=== PATIENT | male | born 1995 | race African-American/Black ===

== ENCOUNTER 2024-08-06 15:59 | Emergency (ER) | payer SELFPAY ==
[2024-08-06 16:01] VITALS: BP 149/95
[2024-08-06 18:16] LABS: % Basophils 0.8 % (0-2); % Eosinophils 1.3 % (0-6); % Immature Granulocytes 0.1 % (0-0.5); % Lymphocytes 27.9 % (20.5-51.1); % Monocytes 7.4 % (1.7-9.3); % Neutrophils 62.5 % (42.2-75.2); Absolute Basophils 0.1 10^3/uL (0-0.2); Absolute Eosinophils 0.1 10^3/uL (0-0.7); Absolute Lymphocytes 2.2 10^3/uL (1.2-3.4); Absolute Monocytes 0.6 10^3/uL (0.1-0.6); Absolute Neutrophils 4.9 10^3/uL (1.4-6.5); Hemoglobin 15.1 g/dL (13.0-18.0); Mean Corp Hgb Conc. 32.1 g/dL (33.0-37.0); Mean Corpuscular Hgb 25.9 pg (27.0-31.0); Mean Corpuscular Volume 80.6 fL (80.0-94.0); Mean Platelet Volume 9.8 fL (7.4-10.4); Nucleated Red Blood Cells % 0 % (-); Platelet Count 211 10^3/uL (130-400); Red Blood Cell Count 5.83 10^6/uL (4.70-6.10); Red Cell Dist. Width 12.4 % (11.5-14.5); White Blood Cell Count 7.8 10^3/uL (4.8-10.8)
--- NOTE | 2024-08-06 18:16 | ED.GENMED ---
History of Present Illness
General
Chief Complaint: Ear Problem
Source: patient
Exam Limitations: none
Time Seen by Provider: 08/06/24 17:33
Nursing documentation reviewed up to this point in time: agreed with
History of Present Illness
History of Present Illness:
Patient is a 29-year-old male presents to the ER for evaluation. Patient reports he has been fatigued for months and has no energy and for the past week he has had a throbbing/pulsating sensation in his left ear that he had some ear pain. He also
ports he has had some pressure in the right side of his head. Denies any fevers. He does report he has a history of vitamin D deficiency and takes [id number] vitamin D. He denies any recent illness fever chills respiratory symptoms sore
throat. He denies any recent trauma injury chiropractor manipulation. He denies any dizziness vertigo. He denies any weight loss. He works as an electrician chief.
Past History
Past History
ED Past Medical History: Negative Asthma, HTN, Hypercholesterolemia or NIDDM
ED Past Surgical History: None
Social History
Tobacco: Non-smoker
Alcohol: None
Personal:
Living: with family
Review of Systems
Review of Systems
Allergies reviewed?: Yes
All Other Systems: ROS reviewed and negative except as documented in HPI and ROS
Constitutional: Reports fatigue; Denies fever or chills
EENT: Reports other (Left ear discomfort, pulsating/throbbing sensation)
Respiratory: Reports no symptoms
Cardiac: Reports no symptoms
ABD/GI: Reports no symptoms
: Reports no symptoms
Musculoskeletal: Reports no symptoms
Skin: Reports no symptoms
Neurological: Reports no symptoms
Endocrine: Reports no symptoms
Psychiatric: Reports no symptoms
Phy Exam
General Physical Exam
General Presentation: no apparent distress
General age: appears stated age
General Skin: warm and dry
General Habitus: normal
General Mental: alert
General Hydration: appears well hydrated
ENT Exam
ENT Exam: EOMI and other (b/l TMS intact )
Cardiovascular Exam
Cardiovascular Exam: regular rate/rhythm, no murmur and normal peripheral pulses
Pulmonary Exam
Pulmonary Exam: lungs clear and no respiratory distress
Neurological Exam
Neurological Exam: alert and oriented x3
Musculoskeletal Exam
Musculoskeletal Exam: full ROM
Skin Exam
Skin Exam: normal color and warm/dry
Psychiatric Exam
Psychiatric Exam: normal mood/affect
Course
Orders/Labs/Results
Orders:
Orders
08/06/24 18:04
CT Head W/o Iv Contrast Urgent
Comment:
Reason For Exam: dizzy head/ear pain
08/06/24 18:10
Complete Blood Count/With Diff Urgent
Comprehensive Metabolic Panel Urgent
TSH Reflex To Free T4 Urgent
08/06/24 19:34
Vital Signs- Treatment ONCE
Frequency: Once
Abnormal Lab Results
08/06/24
18:10
MCH 25.9 L pg
(27.0-31.0)
MCHC 32.1 L g/dL
(33.0-37.0)
08/06/24 18:10
08/06/24 18:10
Vital Signs
Initial and Last Documented VS:
Initial Vital Signs
Temp Pulse Resp BP Pulse Ox
98.8 F 82 16 149/95 98
08/06/24 16:01 08/06/24 16:01 08/06/24 16:01 08/06/24 16:01 08/06/24 16:01
Last Documented Vital Signs
Temp Pulse Resp BP Pulse Ox
98.8 F 82 16 149/95 98
08/06/24 16:01 08/06/24 16:01 08/06/24 16:01 08/06/24 16:08/06/24 16:01
MDM/Problems Addressed
MDM/Problems Addressed:
Patient is a 29-year-old male who presented to the ER complaining of fatigue and throbbing/pulsing sensation in left ear. He denies any trauma. He had some fullness to the right side of his head but denies any headache. He denies any neck pain.
Denies any vertigo. He denies any upper extremity numbness [place] weakness. He presents no acute distress. He complains of fatigue for months.
He denies any recent fever chills URI symptoms. He denies any chest pain shortness of breath. He is nontoxic on exam.
Patient's TMs are clear bilaterally he has no acute distress no meningismus lungs are clear heart regular rate and rhythm. Labs unremarkable including normal TSH .Case discussed with ED physician CAT scan done and unremarkable.
On reexam at 1930 patient reports he feels better he has no symptoms of ear pulsating throbbing, the right side of his head no longer hurts. He has no complaints at this time. Will DC with close outpatient follow family doctor.
*Critical Care Note
Total Time (30-74mins, 75-104mins- exclusive of procedures): Not Applicable
ED Attending Note
-
Portions of this chart may have been created with voice recognition software.� Occasional wrong word or��sound alike� substitutions may have occurred due to the inherent limitations of voice recognition software.
Discharge Plan
Departure
Patient Disposition: Home (Routine Discharge)
Date of Disposition: 08/06/24
Time of Disposition: 19:34
Patient with high blood pressure during this ER visit?: Yes
Condition: Fair
Covid-19: Not Applicable
Discharge Problem:
Fatigue
Instructions: Fatigue (DC)
Prescriptions:
No Action
naproxen [Naprosyn] 500 MG tablet
500 mg PO TID Qty: 15 0RF
Rx Instructions:
PLEASE TAKE WITH FOOD
Referrals:
UNKNOWN - PT DOES,NOT KNOW [Family Provider] -
Activity Restrictions/Additional Instructions:
Follow-up closely with your family doctor in the next several days for reevaluation of your symptoms .
return if any worsening of symptoms
Interventions
Interventions:
*Risk Screen - Suicide Last Done: 08/06/24 16:01
*General Assessment Last Done: 08/06/24 16:01
*Neglect/Abuse Screening Last Done: 08/06/24 16:01
*ED COVID-19 Vaccine History Last Done: 08/06/24 17:31
Discharge Date and Time
Print Language: DANISH
[2024-08-06 18:31] LABS: ALT (SGPT) 11 U/L (0-50); AST (SGOT) 22 U/L (17-59); Albumin 4.3 g/dl (3.5-5.0); Alkaline Phosphatase 63 U/L (38-126); Blood Urea Nitrogen 17 mg/dl (9-20); Calcium 9.9 mg/dl (8.4-10.2); Carbon Dioxide 29 mmol/L (22-30); Chloride 103 mmol/L (98-107); Glucose 96 mg/dl (70-99); Potassium 4.1 mmol/L (3.5-5.1); Sodium 139 mmol/L (135-145); Total Bilirubin 0.4 mg/dl (0.2-1.3); Total Protein 6.9 g/dl (6.3-8.2); eGFR > 60.00
[2024-08-06 19:01] LABS: TSH Reflex To Free T4 1.02 uIU/ml (0.47-4.68)
[2024-08-06 20:41] VITALS: BP 141/96
== END 2024-08-06 20:50 | disposition home or self-care (01) ==
LOC: EMR 15:59
PROVIDERS: Nurse Practitioner; EMERGENCY PHYSICIAN Emergency Medicine
DX: R53.83 Other fatigue (principal); H92.02 Otalgia, left ear; R03.0 Elevated blood-pressure reading, without diagnosis of hypertension; R42 Dizziness and giddiness; E55.9 Vitamin D deficiency, unspecified; K57.92 Diverticulitis of intestine, part unspecified, without perforation or abscess without bleeding
CPT/HCPCS: 99284; 70450; 80053; 84443; 85025

== ENCOUNTER 2024-11-16 15:04 | Emergency (ER) | payer OTHER, SELFPAY ==
[2024-11-16 15:15] VITALS: BP 144/93
--- NOTE | 2024-11-16 16:00 | ED.GENMED ---
History of Present Illness
<Sandra Fagan PA-C - Last Filed: 11/16/24 20:20>
General
Chief Complaint: Headache
Source: patient
Exam Limitations: none
Time Seen by Provider: 11/16/24 15:57
Nursing documentation reviewed up to this point in time: agreed with
History of Present Illness
History of Present Illness:
29-year-old male with past medical history of hypertension presents emergency department today with concerns of a sensation of buzzing in his ears with intermittent headaches which started last year. Patient reports reports that he is a sensation
of buzzing and ringing in his years throughout the whole day and states that it will get worse at different periods of time throughout the day. Patient states that it bothers him so much that sometimes he will have to take a break from work and
stepped outside. Patient reports that sometimes this will trigger headaches and some intermittent dizziness as well. Patient saw care provider for the symptoms symptoms 2 weeks ago and his primary care provider thought the symptoms were related to
high blood pressure and so he was started on blood pressure medication. Patient is unsure what these medication is but states that he takes every morning. He does not feel like it is helping his symptoms. Patient currently does not have a
headache or dizziness. He denies any trauma to the head or neck, any weakness in his upper extremities, any difficulty walking, any loss of consciousness, or any
Past History
<Sandra Fagan PA-C - Last Filed: 11/16/24 20:20>
Past History
ED Past Medical History: Negative Asthma, HTN, Hypercholesterolemia or NIDDM
ED Past Surgical History: None
Social History
Tobacco: Non-smoker
Alcohol: None
Personal:
Living: with family
Review of Systems
<Sandra Fagan PA-C - Last Filed: 11/16/24 20:20>
Review of Systems
All Other Systems: ROS reviewed and negative except as documented in HPI and ROS
Phy Exam
<Sandra Fagan PA-C - Last Filed: 11/16/24 20:20>
Physical Exam
Physical Exam:
General: Patient is well appearing and in no acute distress; non-toxic
Skin: Warm and dry, no rashes or lesions
Head: Normocephalic, atraumatic
Eyes: Sclera non-icteric. EOMs intact.
Ears: TMs clear bilaterally with no erythema, no bulging
Cardiac: Regular rate and rhythm, no murmurs
Peripheral Vascular: No lower extremity swelling or edema
Pulm: Normal respiratory effort, no wheezes, rales, or rhonchi
Neuro: CN II-XII intact, no focal neurologic deficits.
Psychiatric: Appropriate mood and affect.
Course
<Sandra Fagan PA-C - Last Filed: 11/16/24 20:20>
Vital Signs
Initial and Last Documented VS:
Initial Vital Signs
Temp Pulse Resp BP Pulse Ox
98.3 F 86 16 144/93 100
11/16/24 15:15 11/16/24 15:15 11/16/24 15:15 11/16/24 15:15 11/16/24 15:15
Last Documented Vital Signs
Temp Pulse Resp BP Pulse Ox
98.3 F 86 16 144/93 100
11/16/24 15:15 11/16/24 15:15 11/16/24 15:15 11/16/24 15:15 11/16/24 15:15
<Ayala Long MD - Last Filed: 11/16/24 16:39>
Vital Signs
Initial and Last Documented VS:
Initial Vital Signs
Temp Pulse Resp BP Pulse Ox
98.3 F 86 16 144/93 100
11/16/24 15:15 11/16/24 15:15 11/16/24 15:15 11/16/24 15:15 11/16/24 15:15
Last Documented Vital Signs
Temp Pulse Resp BP Pulse Ox
98.3 F 86 16 144/93 100
11/16/24 15:15 11/16/24 15:15 11/16/24 15:15 11/16/24 15:15 11/16/24 15:15
<Sandra Fagan PA-C - Last Filed: 11/16/24 20:20>
MDM/Problems Addressed
Differential Diagnosis Includes:
eastachian tube dysfunction, migraine headache, TMJ disorder, meniere's disease, BPPV, venous hum
MDM/Problems Addressed:
29-year-old male presents emergency department today with concerns of tinnitus for multiple months. He has also had intermittent headaches and dizziness as well. Currently he has no headaches but does feel sensation of buzzing in his ears. He was
seen for similar symptoms in August 18, 2024 and negative CAT scan of the head. Today, he has no focal neurologic deficits and his TMs are clear bilaterally. Differential wide but currently no concern for acute neurologic or vascular event, feel
that he would best be served having a full evaluation by ENT specialist as outpatient. Patient stable for discharge.
Chronic conditions affecting care:
hypertension
<Sandra Fagan PA-C - Last Filed: 11/16/24 20:20>
*Pulse Oximetry
Patient hypoxic: no
*Critical Care Note
Total Time (30-74mins, 75-104mins- exclusive of procedures): Not Applicable
Data Reviewed
Review of Other/Old Records Reveals: Records (Reviewed previous ER physician documentation from 08/06/2024 patient seen for similar symptoms had negative CT scan of the head)
Source: patient and records
ED Attending Note
<Sandra Fagan PA-C - Last Filed: 11/16/24 20:20>
-
Portions of this chart may have been created with voice recognition software.� Occasional wrong word or��sound alike� substitutions may have occurred due to the inherent limitations of voice recognition software.
<Ayala Long MD - Last Filed: 11/16/24 16:39>
ED Attending Note
Patient seen and examined by attending physician: Yes
I performed the substantive portion of visit, reviewed & personally made and approve the management plan that is documented in note by myself or ALEM.: Yes
ED Attending Note:
29-year-old male with complaints of a 'high pitched buzzing' inside his head/ear area on and off for about a year. He saw his doctor about this 2 weeks ago and it was attributed to hypertension he was started on a medication which she is compliant
with. However, since 2 weeks ago, the symptoms continue, waxing and waning intensity without specific provoking or relieving factors. He denies hearing voices, numbness, tingling, focal weakness, nausea, vomiting, fever, chills, neck pain, chest
pain, shortness of breath, change in vision, change in speech, change in balance. He has had intermittent low-level headaches, none right now. On exam, patient is neurologically intact, awake alert, TMs clear bilaterally. Mild hypertension noted.
Patient advised to see ENT promptly for further workup for reports of tenderness, as well as his primary care doctor for continued care and attention to his continued moderate hypertension. No signs or symptoms to suggest acute vascular event,
acute neurological event, etc.
Discharge Plan
Departure
Patient Disposition: Home (Routine Discharge)
Date of Disposition: 11/16/24
Time of Disposition: 16:39
Patient with high blood pressure during this ER visit?: Yes
Condition: Good
Discharge Problem:
Tinnitus
Instructions: Tinnitus (ringing in the ears), BLOOD PRESSURE
Prescriptions:
No Action
naproxen [Naprosyn] 500 MG tablet
500 mg PO TID Qty: 15 0RF
Rx Instructions:
PLEASE TAKE WITH FOOD
Referrals:
Skip Marina MD [Active] - Call in 1-3 days for appt
Activity Restrictions/Additional Instructions:
Your CT scan of the head in July 2024 was normal.
Please continue to take your blood pressure medications.
PLEASE RETURN EMERGENCY DEPARTMENT SHOULD YOU DEVELOP LIGHTHEADEDNESS, DIZZINESS, INTRACTABLE HEADACHE, INTRACTABLE NAUSEA OR VOMITING, CHEST PAIN OR SHORTNESS OF BREATH, WEAKNESS ONE-SIDED BODY VERSUS OTHER, DIFFICULTY AMBULATE, TROUBLE SWALLOWING,
LOSS OF VISION, BLURRY VISION, OR ANY OTHER SIGNS OR SYMPTOMS WORRISOME TO YOU.
Interventions
Interventions:
*Risk Screen - Suicide Last Done: 11/16/24 15:15
*Neglect/Abuse Screening Last Done: 11/16/24 15:17
*Nursing Disposition Last Done: 11/16/24 17:08
Discharge Date and Time
Discharge Date/Time: 11/16/24 17:08
Print Language: GERMAN
== END 2024-11-16 17:08 | disposition home or self-care (01) ==
LOC: EMR 15:04
PROVIDERS: EMERGENCY PHYSICIAN Emergency Medicine
DX: H93.13 Tinnitus, bilateral (principal); I10 Essential (primary) hypertension
CPT/HCPCS: 99282

== ENCOUNTER 2025-07-29 10:06 | Emergency (ER) | payer OTHER, SELFPAY ==
[2025-07-29 10:07] VITALS: BP 149/96
--- NOTE | 2025-07-29 11:36 | ED.GENMED ---
History of Present Illness
General
Chief Complaint: Abdominal Pain
Source: patient
Exam Limitations: none
Time Seen by Provider: 07/29/25 11:30
History of Present Illness
History of Present Illness:
See MDM
Past History
Past History
ED Past Medical History: Negative Asthma, HTN, Hypercholesterolemia or NIDDM
ED Past Surgical History: None
Social History
Tobacco: Non-smoker
Alcohol: None
Personal:
Living: with family
Phy Exam
Physical Exam
Physical Exam:
See MDM
Course
Orders/Labs/Results
Orders:
Orders
07/29/25 10:12
Crisis Consult Urgent
Reason for Consult: depression
07/29/25 11:35
CT Abd/pelvis W Iv Cont Urgent
Comment:
Reason For Exam: lower abd pain, intermittent rectal bleed
07/29/25 12:09
Complete Blood Count/With Diff Urgent
Comprehensive Metabolic Panel Urgent
07/29/25 14:21
Amoxicillin 875 mg/Clav 125 mg [Augmentin 875 mg/125 mg] 1 tablet PO NOW STA
Abnormal Lab Results
07/29/25
12:09
RBC 6.17 H 10^6/uL
(4.70-6.10)
MCV 72.6 L fL
(80.0-94.0)
MCH 23.0 L pg
(27.0-31.0)
MCHC 31.7 L g/dL
(33.0-37.0)
Absolute Monos (auto) 0.8 H 10^3/uL
(0.1-0.6)
Monocytes % 9.5 H %
(1.7-9.3)
07/29/25 12:09
07/29/25 12:09
Vital Signs
Initial and Last Documented VS:
Initial Vital Signs
Temp Pulse Resp BP Pulse Ox
98.3 F 99 18 149/96 98
07/29/25 10:07 07/29/25 10:07 07/29/25 10:07 07/29/25 10:07 07/29/25 10:07
Last Documented Vital Signs
Temp Pulse Resp BP Pulse Ox
98.3 F 86 11 156/97 97
07/29/25 10:07 07/29/25 13:00 07/29/25 13:00 07/29/25 13:00 07/29/25 13:00
MDM/Problems Addressed
Differential Diagnosis Includes:
Note:
CHIEF COMPLAINT(S)
Abdominal pain.
HISTORY OF PRESENT ILLNESS
The patient is a 30-year-old male with a history of abdominal issues described as 'the same pain' that have been recurring for the past several years. The current episode has persisted for the past two days and is localized in the central abdomen.
He states this is similar distribution to a pain episode where he was told he has 'infection in the lower intestines'. He denies any fevers or recent travel or sick contacts. Patient also complaining of 'd�j� vu syndrome'. Patient states he has
been seen for this in the past and placed on mental health medications. He denies any suicidal or homicidal thoughts. Patient interested in crisis consult for outpatient referral
PAST MEDICAL AND SURGICAL HISTORY
The patient recalls a significant episode involving the lower intestines, involving potential infection as the underlying issue. No surgical history was provided.
SOCIAL DETERMINANTS AFFECTING HEALTH
The patient reports that his family is not responding to his calls, indicating social isolation and lack of familial support.
PHYSICAL EXAM
General: Alert, no acute distress.
Skin: Warm, dry.
Head: Normocephalic, atraumatic
Neck: Appears supple, trachea midline.
Eyes, Ears, Nose, Mouth, and Throat: Moist mucous membranes
Cardiovascular: No signs of cyanosis
Respiratory: Respirations are non-labored.
Abdomen: Non-distended. Very mild periumbilical tenderness without rebound
Musculoskeletal: No deformities
Neurological: No focal neurological deficit observed.
Psychiatric: Cooperative, appropriate mood and affect.
PLAN
Blood work and a computed tomography (CT) scan to investigate for potential infections or other abnormalities affecting the intestines.
DIFFERENTIAL DIAGNOSIS
- The Differential Diagnosis includes, in no particular order and is not limited to:
- Diverticulitis
- Colitis
- Hemorrhoids
- Abdominal hernia
- Irritable bowel syndrome
- Gastroenteritis
- Inflammatory bowel disease (IBD)
- Peptic ulcer disease
- Celiac disease
- Gastrointestinal infection
SUMMARY OF ENCOUNTER
The patient was seen in the emergency department for evaluation of chronic abdominal pain, presenting with a 12-year history of episodic symptoms. The immediate plan included ordering blood work and a CT scan to evaluate for infection or other
abdominal pathology.
DISPOSITION
Not explicitly mentioned.
ASSESSMENT
Chronic abdominal pain with a history suggesting potential recurrent lower intestinal infection or other gastrointestinal pathology, with need for further diagnostic evaluation.
EMERGENCY TREATMENTS ADMINISTERED
None explicitly mentioned.
INDEPENDENT REVIEW OF LABS AND INTERPRETATION OF TESTS
Not explicitly elaborated upon, but blood work has been planned.
PATIENT EDUCATION AND COUNSELING
If the tests return normal, consideration for referral to a suppository molding machine operator was discussed.
MEDICATION RECONCILIATION
Patient offered pain management.
MEDICAL DECISION MAKING
- Complexity of Data Reviewed: Chronic conditions affecting care [Past issues with lower intestinal infections]; DDx list.
- Data:
- Category 1: Tests and documents (Blood work and CT scan were ordered)
- Category 2: Not explicitly mentioned.
- Category 3: Discussion of management with other physicians was alluded to but not specified.
- Risk: Consideration of referral to a suppository molding machine operator if current evaluations are unrevealing. Potential for further escalation in care through GI referral.
Care significantly affected by Social Determinants of Health: Family not being supportive, impacting the patients social circumstances.
SUMMARY OF ENCOUNTER
The patient was seen in the emergency department for abdominal pain. A CT scan was performed, revealing acute diverticulitis without perforation or abscess. The patient appeared well and non-toxic. Augmentin (amoxicillin/clavulanate) was prescribed
for treatment. The patient was comfortable with the plan to manage the condition as an outpatient. Resources for mental health support were provided by crisis services, and follow-up for incidental findings on the CT scan was advised with the
primary care provider.
PLAN
Start treatment with Augmentin (amoxicillin/clavulanate) for acute diverticulitis. The patient should follow up with their primary care provider to further evaluate incidental findings from the CT scan.
INDEPENDENT REVIEW OF LABS AND INTERPRETATION OF TESTS
- My independent CT scan interpretation indicates acute diverticulitis without evidence of perforation or abscess.
PATIENT EDUCATION AND COUNSELING
The patient was provided with resources for mental health support and educated about the treatment plan for diverticulitis. The importance of follow-up with the primary care provider for the incidental findings on the CT scan was discussed.
MEDICATION RECONCILIATION
Augmentin (amoxicillin/clavulanate) was prescribed for the treatment of acute diverticulitis.
MEDICAL DECISION MAKING
- Complexity of Data Reviewed: Chronic conditions affecting care. DDx list includes diverticulitis, colitis, hemorrhoids, abdominal hernia, irritable bowel syndrome, gastroenteritis, inflammatory bowel disease, peptic ulcer disease, celiac disease,
and gastrointestinal infection.
- Data:
Category 1: CT scan was ordered and independently reviewed.
- Risk: Prescription drug management with Augmentin (amoxicillin/clavulanate). Consideration was made for discharge due to the patients stable condition and non-toxic appearance.
DIAGNOSIS
Acute diverticulitis (ICD-10: K57.90)
*Pulse Oximetry
SaO2: 98
Oxygen Mode of Delivery: Room air
Patient hypoxic: no
*Critical Care Note
Total Time (30-74mins, 75-104mins- exclusive of procedures): Not Applicable
ED Attending Note
-
Portions of this chart may have been created with voice recognition software.� Occasional wrong word or��sound alike� substitutions may have occurred due to the inherent limitations of voice recognition software.
Discharge Plan
Departure
Patient Disposition: Home (Routine Discharge)
Date of Disposition: 07/29/25
Time of Disposition: 14:22
Patient with high blood pressure during this ER visit?: Yes
Discharge Problem:
Diverticulitis
Instructions: Diverticulitis (DC), BLOOD PRESSURE
Prescriptions:
New
amoxicillin-pot clavulanate 875-125 mg tablet
1 tab PO BID Qty: 14 0RF
No Action
naproxen [Naprosyn] 500 MG tablet
500 mg PO TID Qty: 15 0RF
Rx Instructions:
PLEASE TAKE WITH FOOD
Referrals:
Keenan Preston DO [Family Provider, Family Practice]
Activity Restrictions/Additional Instructions:
Please return for any worsening symptoms.
You may return at any time if you have further concerns.
Please follow up with your doctor at the first available appointment, preferably this week.
Thank you for choosing [facility].
Interventions
Interventions:
*Risk Screen - Suicide Last Done: 07/29/25 10:07
*General Assessment Last Done: 07/29/25 10:07
*Neglect/Abuse Screening Last Done: 07/29/25 10:07
*ED COVID-19 Vaccine History Last Done: 07/29/25 13:59
*ED Influenza Vaccine History Last Done: 07/29/25 13:59
TI-Dgekzv-Ddhmfyuoip Assessment Last Done: 07/29/25 13:59
ED-Psychological Assessment Last Done: 07/29/25 13:59
Discharge Date and Time
Print Language: FRISIAN
[2025-07-29 12:09] VITALS: BP 166/96
[2025-07-29 12:17] LABS: Hematocrit 44.8 % (39.0-52.0); Hemoglobin 14.2 g/dL (13.0-18.0); Mean Corp Hgb Conc. 31.7 g/dL (33.0-37.0); Mean Corpuscular Volume 72.6 fL (80.0-94.0); Nucleated Red Blood Cells % 0 % (-); Platelet Count 172 10^3/uL (130-400); Red Cell Dist. Width 14.4 % (11.5-14.5)
[2025-07-29 12:27] LABS: ALT (SGPT) 12 U/L (0-50); AST (SGOT) 25 U/L (17-59); Albumin 4.6 g/dl (3.5-5.0); Alkaline Phosphatase 66 U/L (38-126); Blood Urea Nitrogen 16 mg/dl (9-20); Calcium 9.6 mg/dl (8.4-10.2); Carbon Dioxide 28 mmol/L (22-30); Chloride 104 mmol/L (98-107); Glucose 87 mg/dl (70-99); Potassium 4.1 mmol/L (3.5-5.1); Sodium 136 mmol/L (135-145); Total Protein 7.9 g/dl (6.3-8.2); eGFR > 60.00
[2025-07-29 13:00] VITALS: BP 156/97
[2025-07-29] MEDS: AUGMENTIN 875 MG/125 MG 1 TABLET PO (14:30)
[2025-07-29 14:31] VITALS: BP 149/94
== END 2025-07-29 14:35 | disposition home or self-care (01) ==
LOC: EMR 10:06
PROVIDERS: EMERGENCY PHYSICIAN Student in an Organized Health Care Education/Training Program; FAMILY PHYSICIAN Family Medicine
DX: K57.32 Diverticulitis of large intestine without perforation or abscess without bleeding (principal)
CPT/HCPCS: 99284; 74177; 80053; 85025; Q9967